=== PATIENT | male | born 1960 | race Caucasian/White ===

== ENCOUNTER 2022-07-17 10:02 | Outpatient (REF) | payer OTHER, SELFPAY ==
[2022-07-17 11:42] LABS: Appearance Urine Clear; Color Urine Yellow; Glucose Urine UA 100 mg/dL (Negative); Leukocyte Esterase Urine Negative (Negative); Nitrite Urine Negative (Negative); PH 6.5 (5.0-9.0); Urine Blood Negative (Negative); Urine Ketones 15 mg/dL (Negative); Urine Protein Negative (Neg-Trace)
[2022-07-17 11:45] LABS: MANUAL DIFF FLAG NO
[2022-07-17 12:02] LABS: Basophils Absolute Auto 0.1 X10*3/uL (0.0-0.2); Basophils Percent Auto 1.2 % (0-2); Eosinophils Absolute Auto 0.1 X10*3/uL (0.0-0.4); Eosinophils Percent Auto 2.4 % (0-4); Hematocrit 51.2 % (42.0-52.0); Hemoglobin 16.9 g/dl (14.0-18.0); Imm Gran Abs Auto 0.01 X10*3/uL (0.00-0.03); Imm Gran Pct Auto 0.2 % (0.0-0.4); Lymphocytes Absolute Auto 1.7 X10*3/uL (1.2-4.9); Lymphocytes Percent Auto 34.1 % (20-40); Mean Corpuscular Hemoglobin 29.4 pg (27.0-33.0); Mean Corpuscular Volume 89.2 fL (80.0-98.0); Mean Platelet Volume 10.5 fL (9.4-12.4); Monocytes Absolute Auto 0.4 X10*3/uL (0.1-1.2); Monocytes Percent Auto 7.7 % (2-11); Neutrophils Absolute Auto 2.7 x10*3/uL (2.0-8.3); Neutrophils Percent Auto 54.4 % (45-73); Platelet Count 164 X10*3/uL (160-400); Red Blood Count 5.74 X10*6/uL (4.60-5.80); Red Cell Distribution Width 13.2 % (11.0-16.0)
[2022-07-17 12:04] LABS: Creatinine Urine 179.17 mg/dL; Microalbum/Creatinine Ratio Ur 16.7 ug/mg cr
[2022-07-17 14:02] LABS: Alanine Aminotransferase 76 U/L (0-40); Albumin Level 4.2 g/dL (3.5-5.0); Alkaline Phosphatase 73 U/L (39-117); Anion Gap 15 (12-20); Aspartate Amino Transferase 49 U/L (5-37); Blood Urea Nitrogen 16 mg/dL (9-16); Calcium 9.6 mg/dL (8.4-10.2); Carbon Dioxide 24 mmol/L (22-29); Chloride 106 mmol/L (96-108); Cholesterol 209 mg/dL; Estimated Glomerular Filt Rate > 60; Glucose Fasting 161 mg/dL (60-99); HDL Cholesterol 32 mg/dL; LDL Cholesterol Calculated 145 mg/dl; Potassium 4.1 mmol/L (3.3-5.1); Sodium 141 mmol/L (135-145); Total Protein 6.7 g/dL (6.5-8.0); Triglycerides 162 mg/dL
[2022-07-17 14:17] LABS: TSH reflex Free T4 1.45 uIU/mL (0.32-4.0)
== END 2022-07-17 10:03 | disposition home or self-care (01) ==
LOC: HO.HMGCLDS 10:02
PROVIDERS: PCP Family Medicine; Visit Provider Family Medicine
DX: Z00.00 Encounter for general adult medical examination without abnormal findings (principal); I10 Essential (primary) hypertension; Z12.5 Encounter for screening for malignant neoplasm of prostate
CPT/HCPCS: 36415; 80053; 80061; 81003; 82043; 84153; 84443; 85025

== ENCOUNTER 2022-09-04 07:47 | Outpatient (REF) | payer OTHER, SELFPAY ==
--- NOTE | ~2022-09-04 | US_ITS ---
EXAMINATION: US ABDOMEN LIMITED WITH LIVER ELASTOGRAPHY CLINICAL INFORMATION: Abnormal levels of serum enzymes COMPARISON: None. TECHNIQUE: Real-time imaging of the abdominal viscera. Noninvasive ultrasound liver fibrosis assessment is performed using [employer] ElastPQ point quantification shear wave elastography (2D-SWE) with a C5-2 MHz transducer. Multiple elastography samples are obtained. FINDINGS: PANCREAS: The visualized pancreatic head and body are normal in appearance. The tail of the pancreas is obscured from visualization by the overlying bowel gas. LIVER: The liver demonstrates enlarged size, normal contour and echogenicity. No focal lesion or intrahepatic biliary duct dilatation. The right lobe measures 21.0 cm in length. The left lobe measures 17.2 cm in length. Portal flow is hepatopedal Shear wave liver elastography median stiffness is 1.18 m/s (reference: normal median stiffness is 1.3 m/s or less). IQR/median stiffness to assess sampling precision is 0.08 (reference: good quality data set is IQR/median stiffness of 0.15 or less). GALLBLADDER: Gallbladder wall thickness measures 0.3 cm. The gallbladder is physiologically distended without evidence of stones, sludge, polyps, wall thickening or pericholecystic fluid. COMMON BILE DUCT: Common bile duct is not visualized. RIGHT KIDNEY: There is an echogenic stone midpole measuring 1.3 x 0.8 x 0.9 seen. The kidney measures 12.3 cm in maximum dimension. FREE FLUID: None. US/US abdomen harmon w elastography IMPRESSION: 1. Mild hepatic steatosis without focal lesion. Nonobstructive echogenic right renal calculi. 2. Liver elastography: Median liver stiffness measures 1.18 suggestive of high probability normal REFERENCE: Society of Radiologists in Ultrasound Liver Stiffness Thresholds (2020): LIVER STIFFNESS THRESHOLDS: *Liver Stiffness equal or less than 1.3 m/s: High probability of being normal. *Liver Stiffness less than 1.7 m/s: In the absence of other known clinical signs, rules out compensated advanced chronic liver disease. *Liver Stiffness 1.7-2.1 m/s: Suggestive of compensated advanced chronic liver disease but need further test for confirmation. *Liver Stiffness over 2.1 m/s: Rules in compensated advanced chronic liver disease. *Liver Stiffness over 2.4 m/s: Suggestive of clinically significant portal hypertension. QUALITY OF DATA SET: *IQR/Median value equal or less than 0.15 implies a quality data set. *IQR/Median value over 0.15 implies a poor quality data set. SIGNIFICANT CHANGE FROM PRIOR EXAM: Significant change if liver stiffness measurement is 10% or greater from prior exam. OTHER CONSIDERATIONS: The stage of liver fibrosis may be overestimated in the setting of acute hepatitis, liver inflammation, elevated liver function tests, hepatic vascular congestion, obstructive cholestasis, non-fasting state, and infiltrative diseases such as amyloidosis and lymphoma. In some patients with NAFLD, the liver stiffness thresholds for compensated advanced chronic liver disease may be lower. In causes other than viral hepatitis and NAFLD, liver stiffness thresholds are not well established.
[2022-09-04 09:51] LABS: Alanine Aminotransferase 44 U/L (0-40); Albumin Level 4.2 g/dL (3.5-5.0); Alkaline Phosphatase 60 U/L (39-117); Anion Gap 11 (12-20); Aspartate Amino Transferase 26 U/L (5-37); Bilirubin Total 0.7 mg/dL (0.0-1.0); Blood Urea Nitrogen 30 mg/dL (9-16); Calcium 9.5 mg/dL (8.4-10.2); Carbon Dioxide 26 mmol/L (22-29); Chloride 110 mmol/L (96-108); Estimated Glomerular Filt Rate > 60; Glucose Fasting 136 mg/dL (60-99); Potassium 5.3 mmol/L (3.3-5.1); Sodium 142 mmol/L (135-145); Total Protein 6.5 g/dL (6.5-8.0)
== END 2022-09-04 07:48 | disposition home or self-care (01) ==
LOC: HO.US 07:47
PROVIDERS: PCP Family Medicine; Visit Provider Family Medicine
DX: Z00.00 Encounter for general adult medical examination without abnormal findings (principal); R74.8 Abnormal levels of other serum enzymes
CPT/HCPCS: 36415; 76705; 76981; 80053

== ENCOUNTER → 2022-10-16 10:40 | Outpatient (BNVA) | payer OTHER, SELFPAY | PROVIDERS: PCP Family Medicine; Visit Provider Physician Assistant | DX: R74.8 Abnormal levels of other serum enzymes (principal); I25.2 Old myocardial infarction; J44.9 Chronic obstructive pulmonary disease, unspecified; Z86.010 Personal history of colon polyps; Z79.84 Long term (current) use of oral hypoglycemic drugs | CPT/HCPCS: 99202 ==

== ENCOUNTER 2023-02-25 08:30 | Outpatient (AMB) | payer OTHER, SELFPAY ==
[2023-02-25 08:51] VITALS: BP 124/78; PULSE 69; O2SAT 97; BMI 31.7
--- NOTE | 2023-02-25 08:51 | MHC.PC.OV ---
Vital Signs 02/25/23 08:51 Height 6 ft Weight 233 lb 8 oz BMI 31.7 BP 124/78 Blood Pressure Location Lt brachial Position Sitting Pulse 69 Pulse Source Pulse Oximeter Pulse Oximetry (%) 97 Oxygen Delivery Method Room Air Intake Visit Reasons: f/u diabetes Intake Note: Patient is here to follow up on his diabetes today. Allergies No Known Allergies Allergy (Verified 02/25/23 08:52) Medication List - Last Reconciled 02/25/23 by Reji Lancaster MD albuterol sulfate 90 mcg/actuation 2 puffs inhalation Q4-6H PRN aspirin (Adult Aspirin Regimen) 81 mg PO DAILY atorvastatin 80 mg PO DAILY 30 days bisacodyl (Dulcolax (bisacodyl)) 10 mg (2 x 5 mg) PO ONCE 1 day bisacodyl (Dulcolax (bisacodyl)) 10 mg (2 x 5 mg) PO ONCE 1 day blood sugar diagnostic (FreeStyle Lite Strips) DX: E11.9, test blood sugar 2 times a day, 90 days blood-glucose meter (FreeStyle Lite Meter kit) DX: E11.9, test blood sugar 2 times a day, duration 999 days blood-glucose sensor (FreeStyle Heraclio 3 Sensor device) Every 14 days As directed, 28 days carbamide peroxide 6.5% (Debrox) 5 drps otic (ears) DAILY 4 days empagliflozin (Jardiance) 10 mg PO DAILY 30 days glhcvkjklyq-eedkbfane-ehlwpful 100-62.5-25 mcg (Trelegy Ellipta) 1 inh inhalation DAILY glipizide ER 5 mg PO DAILY 30 days lancets (FreeStyle Lancets) As directed losartan-hydrochlorothiazide 50-12.5 mg 1 tab PO DAILY 90 days polyethylene glycol 3350 (Miralax) 238 grams PO ONCE 1 day polyethylene glycol 3350 (Miralax) 238 grams PO ONCE 1 day tizanidine 4 mg PO Q8H PRN 30 days Tobacco use date assessed: 02/25/23 Fall risk assessment: No Falls in past year Last assessed Fall Risk: 02/25/23 Dental Screening Dental Screen Date: 02/25/23 Did you have a dental visit in the last 12 months?: No Did you have a dental problem in the last 6 months where you did not have access to dental care?: No Was dental information given to patient?: Patient declined HPI f/u diabetes HPI Details 62 y/o male presents to f/u diabetes and hypertension with hx of CAD. His A1c had improved significantly down to 7.6%. Has a fluctuating blood sugars and eats out a lot. Encouraged him to work at lifestyle changes further. A1c today 02/25/23 is 8.4%. He is on Jardiance 10mg and glipizide 5mg daily. He reports morning blood sugars in the 120-160s. Blood pressure today is 124/78. He is on losartan-HCTZ 50-12.5mg daily. Pt notes his foot has been peeling and is unsure why. 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 Eliceo Oritz, Adriana Butler, Nicolas Osorio and colleagues, with an educational gerard from [employer]. Physical exam (Primary Care) Vital Signs: Last Vital Signs Pulse 69 02/25/23 08:51 BP 124/78 02/25/23 08:51 Pulse Ox 97 02/25/23 08:51 Oxygen Delivery Method Room Air 02/25/23 08:51 BMI result Body Mass Index 31.7 Tobacco/Smoking Status: Tobacco use Status Tobacco use date assessed 02/25/23 02/25/23 09:00 Patient Tobacco Use Status Never used Tobacco 02/25/23 09:00 e-Cigarette/Vaping Use Never Used 02/25/23 09:00 Thrive Assessment: Date of Thrive Assessment Date Thrive assessed 06/13/22 02/25/23 09:00 Results AMB Hemoglobin A1c AMB Hemoglobin A1c 8.4 % Last Edit by Shadia Garibay CMA on 02/25/23 09:18 Results Reviewed Results Reviewed: Laboratory Last Values Hgb A1c (Clinic) 8.4 % (4.0-6.0) H 02/25/23 09:17 Assessment and Plan Assessment & Plan (1) Diabetes: Code(s): E11.9 - Type 2 diabetes mellitus without complications Plan: Significantly worsened control of his diabetes and A1c now 8.4%. He notes that his morning blood sugars typically run between 90 and 160 based on what he is eating. He also notes some sugars that are lower in the afternoons - a couple down to 50. He says that he does not eat lunch. Encouraged him to at least have a small snack or lunch; regular meals and food intake are important with diabetes. Overall, he needs increased sugar control and I am increasing his Farxiga. He will eat more regular meals and snacks. Referring him to endocrinology (2) Coronary artery disease: Code(s): I25.10 - Atherosclerotic heart disease of [place] coronary artery without angina pectoris Plan: Had increased his atorvastatin at prior visit Will discuss repeating lipids at next visit (3) Hypertension: Code(s): I10 - Essential (primary) hypertension Plan: Blood pressure is controlled. Goal Is less than 130/80 Continue current medication regimen (4) Fungal infection of foot: Code(s): B35.3 - Tinea pedis Plan: He can use an OTC antifungal cream Orders: Orders Comprehensive [place]. Panel Fast Today E11.9 - Type 2 diabetes mellitus without complications, Z00.00 - Encounter for general adult medical examination without abnormal findings Lipid Panel Today I25.10 - Atherosclerotic heart disease of [place] coronary artery without angina pectoris, Z00.00 - Encounter for general adult medical examination without abnormal findings AMB Hemoglobin A1c Today Z13.9 - Encounter for screening, unspecified Referrals Endocrinology Referral E11.9 - Type 2 diabetes mellitus without complications Medications: Changed From empagliflozin (Jardiance) 10 mg PO DAILY 30 days 30 tabs 2RF E11.9 - Type 2 diabetes mellitus without complications To empagliflozin 25 mg PO DAILY 30 days 30 tabs 2RF E11.9 - Type 2 diabetes mellitus without complications Coding Level of Care Code Est Pt Level 4 (00344) Diagnoses Diabetes E11.9 Coronary artery disease I25.10 Hypertension I10 Fungal infection of foot B35.3
== END 2023-02-25 09:40 | disposition home or self-care (01) ==
PROVIDERS: PCP Family Medicine; Visit Provider Family Medicine
DX: E11.9 Type 2 diabetes mellitus without complications (principal); I25.10 Atherosclerotic heart disease of native coronary artery without angina pectoris; I10 Essential (primary) hypertension; B35.3 Tinea pedis
CPT/HCPCS: 83036; 99214

== ENCOUNTER 2023-04-03 08:08 | Outpatient (AMB) | payer OTHER, SELFPAY ==
[2023-04-03 08:33] VITALS: BP 112/68; PULSE 61; RESP 14; TEMP 37.2; O2SAT 97; BMI 31.8
--- NOTE | 2023-04-03 08:33 | MHC.PC.OV ---
Vital Signs 04/03/23 08:33 Height 6 ft Weight 234 lb 6 oz BMI 31.8 BP 112/68 Blood Pressure Location Lt brachial Position Sitting Respiration 14 Pulse 61 Pulse Source Pulse Oximeter Temp 98.9 F Temp Source Oral Pulse Oximetry (%) 97 Oxygen Delivery Method Room Air Intake Visit Reasons: f/u diabetes Intake Note: Patient reports he is here for a diabetic follow up. He reports he would like to discuss the dosing on his glipizide medication. Patient states he had his A1C done last month. 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 Accompanied by: Self / Same As Patient Allergies No Known Allergies Allergy (Verified 02/25/23 08:52) Medication List - Last Reconciled 04/03/23 by Reji Lancaster MD albuterol sulfate 90 mcg/actuation 2 puffs inhalation Q4-6H PRN aspirin (Adult Aspirin Regimen) 81 mg PO DAILY atorvastatin 80 mg PO DAILY 30 days blood sugar diagnostic (FreeStyle Lite Strips) DX: E11.9, test blood sugar 2 times a day, 90 days blood-glucose meter (FreeStyle Lite Meter kit) DX: E11.9, test blood sugar 2 times a day, duration 999 days blood-glucose sensor (Ortho-tagStyle Heraclio 3 Sensor device) Every 14 days As directed, 28 days carbamide peroxide 6.5% (Debrox) 5 drps otic (ears) DAILY 4 days empagliflozin 25 mg PO DAILY 30 days cscyjbzbqxb-cvjxoinxf-zyfdjvdm 100-62.5-25 mcg (Trelegy Ellipta) 1 inh inhalation DAILY glipizide ER 5 mg PO DAILY 30 days lancets (FreeStyle Lancets) As directed losartan-hydrochlorothiazide 50-12.5 mg 1 tab PO DAILY 90 days tizanidine 4 mg PO Q8H PRN 30 days Tobacco use date assessed: 02/25/23 Fall risk assessment: No Falls in past year Last assessed Fall Risk: 04/03/23 Dental Screening Dental Screen Date: 04/03/23 Did you have a dental visit in the last 12 months?: Yes Did you have a dental problem in the last 6 months where you did not have access to dental care?: No Was dental information given to patient?: Patient has dentist HPI f/u diabetes HPI Details 62 y/o male presents to f/u diabetes. A1c had risen to 8.4%. Had increased Farxiga and encouraged more regular meals as he had been getting some low blood sugars when he does not eat. He?was?unable?to?get?Farxiga?and?is?back?on?Jardiance?25?mg?daily.??Maxed?out?on?Jardiance. Was?given?fast?acting?glipizide?by?endocrinology?but?he?says?this?was?not?controlling?his?blood?sugars?at?all. 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 Eliceo Ortiz, Adriana Butler, Nicolas Osorio and colleagues, with an educational gerard from [employer]. Physical exam (Primary Care) Vital Signs: Last Vital Signs Temp 98.9 F 04/03/23 08:33 Pulse 61 04/03/23 08:33 Resp 14 04/03/23 08:33 BP 112/68 04/03/23 08:33 Pulse Ox 97 04/03/23 08:33 Oxygen Delivery Method Room Air 04/03/23 08:33 BMI result Body Mass Index 31.8 Tobacco/Smoking Status: Tobacco use Status Tobacco use date assessed 02/25/23 04/03/23 08:36 Patient Tobacco Use Status Never used Tobacco 04/03/23 08:36 e-Cigarette/Vaping Use Never Used 04/03/23 08:36 Thrive Assessment: Date of Thrive Assessment Date Thrive assessed 06/13/22 04/03/23 08:36 Assessment and Plan Assessment & Plan (1) Diabetes: Code(s): E11.9 - Type 2 diabetes mellitus without complications Plan: Has?some?misunderstandings?about?appropriate?blood?sugar?control?levels. We?discussed?that?goal?for?his?morning?blood?sugar?should?be?around?80-115?or?125?max. Goal?for?his?blood?sugars?throughout?his?day?should?average?less?than?135 We?can?discuss?a?med?goals?at?another?visit?when?his?blood?sugars?are?improving. He?will?continue?Jardiance.??He?was?unable?to?obtain?Farxiga.??He?is?maxed?out?on?this?medication. He?will?use?glipizide?ER?5?mg?in?the?morning?with?his?breakfast?and?5?mg?before?his?lunch.??If?he?is?going?low?he?can?take?5?mg?in?the?morning?and?2.5?with?lunch?and?2.5?with?dinner. Reminded?him?that?he?should?not?skip?meals?and?can?use?a?snack?if?he?is?getting?low?with?this?regimen. Follow-up?in?3?months (2) Coronary artery disease: Code(s): I25.10 - Atherosclerotic heart disease of [place] coronary artery without angina pectoris Plan: Had?increased?atorvastatin?to?80?mg?about?2?visits?ago He?is?tolerating?this?well He?will?recheck?his?lipids?prior?to?our?next?visit. Orders: Orders Lipid Panel Today I25.10 - Atherosclerotic heart disease of [place] coronary artery without angina pectoris, Z00.00 - Encounter for general adult medical examination without abnormal findings Comprehensive [place]. Panel Fast Today I25.10 - Atherosclerotic heart disease of [place] coronary artery without angina pectoris, Z00.00 - Encounter for general adult medical examination without abnormal findings Medications: Changed From glipizide ER 5 mg PO DAILY 30 days 30 tabs 2RF To glipizide ER Take 15 min before breafast and 15 min before lunch 5 mg PO BID 60 tabs 2RF 30 days Coding Level of Care Code Est Pt Level 3 (23651) Diagnoses Diabetes E11.9 Coronary artery disease I25.10
== END 2023-04-03 09:30 | disposition home or self-care (01) ==
PROVIDERS: PCP Family Medicine; Visit Provider Family Medicine
DX: E11.9 Type 2 diabetes mellitus without complications (principal); I25.10 Atherosclerotic heart disease of native coronary artery without angina pectoris
CPT/HCPCS: 99213

== ENCOUNTER 2023-05-13 06:46 | Day surgery (SDC) | payer OTHER, SELFPAY ==
--- NOTE | 2023-05-12 10:48 | P.CONAN_ITS ---
Documented by User: Jenise Cody NP 05/12/23 12:34 HPI - Anesthesia Eval Consult details Narrative: 62yo M for Colonoscopy Follows [facility] - last seen 04/2022 with c/o SOB - w/u with echo and stress - nml so no need for cath. Per TC with pt 05/12/2023, no CP/SOB with activity. Follows [facility] - last seen 09/2022, optimized for colo PMFSH Active Problems Active Problems: All Active Problems (Updated 02/25/23 @ 09:37 by Jameson Huggins) Fungal infection of foot (Acute) Personal history of colonic polyps (Acute) Otalgia (Acute) Left ear impacted cerumen (Acute) Diabetes (Acute) Elevated liver enzymes (Acute) Screening for prostate cancer (Acute) Screening for colon cancer (Acute) Adult general medical examination (Acute) Elevated fasting glucose (Acute) Throat discomfort (Acute) Right sided sciatica (Acute) Pulmonary nodules (Acute) Coronary artery disease (Acute) History of UT (myocardial infarction) (Acute) Hyperlipidemia (Acute) COPD (chronic obstructive pulmonary disease) (Acute) Hypertension (Acute) Laboratory exam ordered as part of routine general medical examination (Acute) Past Medical History Medical History Carpal tunnel syndrome Heart disease COPD (chronic obstructive pulmonary disease) Family History Family History Unknown Adopted Surgical History Surgical History History of heart artery stent Hx of colonoscopy History of surgery on right wrist Hx of knee surgery History of nasal surgery Social History Social History Housing: House Patient Tobacco Use Status: Never used Tobacco e-Cigarette/Vaping Use: Never Used Second Hand Smoke Exposure: No Advance Directives: No Advance Directives Information Provided: Yes service: Yes (Retired [employer]) Current occupational status: 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 100 mcg-umeclid 1 inh inhalation DAILY 06/13/22 04/03/23 Unknown History 62.5 mcg-vilant 25 mcg inhalat.powder (Trelegy Ellipta) Exam Exam Date and Time: May 12, 2023 1048 Narrative Narrative: EKG 2021 Marked SB @ 47 Low volt QRS Inf infarct ECHO 05/2022 1. Nml LV size and systolic function. Nml RWM. LVEF 55-60% Nml LV diastolic function 2. Mild concentric LVH 3. No signif valve disease 4. Transverse aorta mildly dilated 3.1cm Nuc Stress 05/2022 Negative for ischemia Nml perfusion test. Assessment and Plan Assessment Anesthesia Assessment: Chart Reviewed Documented by User: Bre Llamas MD 05/13/23 07:37 [facility] Past Medical History Medical History Carpal tunnel syndrome Heart disease COPD (chronic obstructive pulmonary disease) Family History Family History Unknown Adopted Surgical History Surgical History History of heart artery stent Hx of colonoscopy History of surgery on right wrist Hx of knee surgery History of nasal surgery History of Problems with Anesthesia: No Social History Social History Housing: House Patient Tobacco Use Status: Never used Tobacco e-Cigarette/Vaping Use: Never Used Second Hand Smoke Exposure: No Advance Directives: No Advance Directives Information Provided: Yes service: Yes (Retired [employer]) 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 occupational status: 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 100 mcg-umeclid 1 inh inhalation DAILY 06/13/22 04/03/23 Unknown History 62.5 mcg-vilant 25 mcg inhalat.powder (Trelegy Ellipta) Exam Airway Mallampati Class: III TM Dist: >3cm Neck ROM: Full Loose/Missing/Broken Teeth: No Heart: RRR Lungs: CTA Assessment and Plan Assessment Anesthesia Assessment: Anesthesia Plan Discussed Final Anesthetic Review History of Problems with Anesthesia: No NPO: Yes ASA Class: III Final Preanesthetic Review: Meds/Allgs Chart Reviewed, Consent Obtained/Reviewed and Anes Risks/Benef Reviewed Patient Risk: Intermediate Procedure Risk: Low Anesthetic Plan Anesthetic Plan: MAC: Disposition: Standard PACU
--- NOTE | 2023-05-13 06:39 | MHC.SHP ---
Pre-Procedural Eval Section A Date of Service: 05/13/23 Section B Chief Complaint: Personal history of colonic polyps Relevant Family History (Specify if Yes): No Relevant Social History: None Present Medications: see Short Stay Collaborative assessment Medical History: Significant History (Carpal tunnel syndrome Heart disease COPD (chronic obstructive pulmonary disease)) History of Previous Operations: Relevant previous surgery/procedure and date(s) (History of heart artery stent Hx of colonoscopy History of surgery on right wrist Hx of knee surgery History of nasal surgery) Allergies: Allergies Allergy/AdvReac Type Severity Reaction Status Date / Time No Known Allergies Allergy Verified 02/25/23 08:52 Review of Systems Sugical H&P ROS: Negative: Constitution, Cardiovascular, Respiratory, Neurological, Psychiatric, Hem-Onc, Allergic/Immunologic, Gastrointestinal, Genitourinary, Musculoskeletal, Integumentary, Endocrine and Eyes/Ears/Nose/Throat Exam Surgical H&P Exam: Normal: HEENT, Normal: Heart, Normal: Lungs, Normal: Extremities, Normal: Abdomen, Normal: Skin and Normal: Neurological Plan Diagnosis/Plan: Unchanged I have reviewed the history and physical and performed a pertinent physical examination on my patient. No changes have occurred unless specified. Time Spent With Patient Time: Total time managing care of this patient today ____ minutes.
[2023-05-13 07:13] VITALS: BP 109/85; PULSE 64; RESP 18; TEMP 36.8; O2SAT 95; BMI 31.2
[2023-05-13 07:18] LABS: Glucose, Whole Blood 154 mg/dL (60-115)
[2023-05-13] MEDS: Lactated Ringers 1,000 ML 100 ML IVCONT (07:19)
--- NOTE | 2023-05-13 08:29 | P.OP_ITS ---
Operative Note Operative Note Date of Service: 05/13/23 Narrative: Operative Information Procedure Description: Colonoscopy Indication: hx of colon polyps Anesthesia: MAC COLONOSCOPY Instrument: Olympus variable stiffness pediatric scope 190L Colonoscopy Monitoring: Vital signs and clinical assessment, continuous EKG monitoring, Pulse oximetry, Carbon Dioxide monitoring and blood pressure monitoring were done throughout the procedure. Colon withdrawal time was 25 minutes. Procedure: The patient was placed in the left lateral decubitis position and pre-procedure medications were administered. After a digital rectal examination of the ano-rectum, the video colonoscope was inserted into the rectum and advanced through the colon to the cecum/TI. The colonoscope was slowly withdrawn in a retrograde panoramic fashion and the colon mucosa was carefully examined including a retroflexed view of the rectum. Findings and interventions are described below. Procedure Difficulty: moderate Findings: Terminal Ileum-not intubated Cecum: 6-8 mm sessile polyp removed with cold snare, 4-6 mm sessile polyp removed with cold forceps Ascending Colon: normal Transverse Colon -normal Descending Colon:normal Sigmoid Colon: moderate severe diverticulosis. at approx 30 cm from anal verge semi pedunculated polyp measuring about 14-15 mm injected with epinephrine and then removed with hot snare with one clip applied to the base of the defect Rectum: Retroflexion with moderate internal hemorrhoids, grade I Anorectum - normal Colon preparation: [facility] Bowel Preparation Scale Right colon; 2 Transverse colon: 3 Left colon; 2 (0 = Unprepared colon segment with mucosa not seen due to solid stool that cannot be cleared. 1 = Portion of mucosa of the colon segment seen, but other areas of the colon segment not well seen due to staining, residual stool and/or opaque liquid. 2 = Minor amount of residual staining, small fragments of stool and/or opaque liquid, but mucosa of colon segment seen well. 3 = Entire mucosa of colon segment seen well with no residual staining, small fragments of stool or opaque liquid) Impression and Post Procedure Diagnosis: polyps internal hemorrhoids diverticular disease Plan: High fiber diet leaflet Avoid straining at stool, epsom salts and sitz bath, anusol supps or cream Repeat Colonoscopy in 1-2 years or earlier if clinically indicated can resume aspirin tomorrow Above findings were reviewed with the patient and relevant handouts were provided if indicated.
[2023-05-13 08:34] VITALS: BP 133/79; PULSE 71; RESP 18; TEMP 36.6; O2SAT 98
[2023-05-13 08:49] VITALS: BP 141/81; PULSE 66; RESP 18; TEMP 36.9; O2SAT 96
== END 2023-05-13 09:05 | disposition home or self-care (01) ==
PROVIDERS: PCP Family Medicine; Visit Provider Internal Medicine Gastroenterology
PROC: 0DJD8ZZ Inspection of Lower Intestinal Tract, Via Natural or Artificial Opening Endoscopic (ICD-10-PCS; CPT 45378; principal; 2023-05-13 08:20)
DX: Z12.11 Encounter for screening for malignant neoplasm of colon (principal); Z86.010 Personal history of colon polyps; K63.5 Polyp of colon; K57.30 Diverticulosis of large intestine without perforation or abscess without bleeding; K64.0 First degree hemorrhoids; I25.10 Atherosclerotic heart disease of native coronary artery without angina pectoris; I11.9 Hypertensive heart disease without heart failure; I25.2 Old myocardial infarction; Z95.5 Presence of coronary angioplasty implant and graft; E11.9 Type 2 diabetes mellitus without complications; E78.5 Hyperlipidemia, unspecified; J44.9 Chronic obstructive pulmonary disease, unspecified; R74.8 Abnormal levels of other serum enzymes; Z79.51 Long term (current) use of inhaled steroids; Z79.82 Long term (current) use of aspirin; Z79.84 Long term (current) use of oral hypoglycemic drugs; Z79.899 Other long term (current) drug therapy; Z98.890 Other specified postprocedural states
CPT/HCPCS: 45385; 45380; 45381; 82947; 88305; J0171; J2704

== ENCOUNTER → 2023-05-13 06:46 | Outpatient (BNV) | payer OTHER, SELFPAY | PROVIDERS: PCP Family Medicine; Visit Provider Internal Medicine Gastroenterology | DX: Z12.11 Encounter for screening for malignant neoplasm of colon (principal); Z86.010 Personal history of colon polyps; D12.0 Benign neoplasm of cecum; D12.5 Benign neoplasm of sigmoid colon; K64.0 First degree hemorrhoids | CPT/HCPCS: 45380; 45381; 45385 ==

== ENCOUNTER 2023-05-28 07:21 | Outpatient (AMB) | payer OTHER, SELFPAY ==
--- NOTE | 2023-05-28 07:37 | MHC.OFFVIS ---
Intake Vital Signs 05/28/23 07:42 Height 6 ft Weight 230 lb BMI 31.2 BP 133/69 Blood Pressure Location Lt brachial Position Sitting Pulse 78 Intake Visit Reasons: S/P [place]; Dr. Jacobs Intake Note: Patient follow up for Colonoscopy screening Patient denies any GI issues. Non Profit Job Titles Required: No Accompanied by: Self / Same As Patient Allergies No Known Allergies Allergy (Verified 05/28/23 07:37) Medication List - Last Reconciled 05/28/23 by Wilma Abdullahi PA-C albuterol sulfate 90 mcg/actuation 2 puffs inhalation Q4-6H PRN aspirin (Adult Aspirin Regimen) 81 mg PO DAILY atorvastatin 80 mg PO DAILY 90 days bisacodyl (Dulcolax (bisacodyl)) 20 mg (4 x 5 mg) PO ONCE 1 day blood sugar diagnostic (FreeStyle Lite Strips) DX: E11.9, test blood sugar 2 times a day, 90 days blood-glucose meter (FreeStyle Lite Meter kit) DX: E11.9, test blood sugar 2 times a day, duration 999 days blood-glucose sensor (FreeStyle Heraclio 3 Sensor device) Every 14 days As directed, 28 days carbamide peroxide 6.5% (Debrox) 5 drps otic (ears) DAILY 4 days empagliflozin 25 mg PO DAILY 30 days cfcdzxwoitu-dwhfeecpd-avlrrtic 100-62.5-25 mcg (Trelegy Ellipta) 1 inh inhalation DAILY glipizide ER 5 mg PO BID 30 days lancets (FreeStyle Lancets) As directed losartan-hydrochlorothiazide 50-12.5 mg 1 tab PO DAILY 90 days polyethylene glycol 3350 (Miralax) 238 grams PO ONCE 1 day tizanidine 4 mg PO Q8H PRN 30 days HPI HPI Comments History of Present Illness Details A 62 y/o adopted male GI history is unknown, history of colon polyps, f/u after polyp surveillance colonoscopy with polypectomy-tubular adenoma with high-grade dysplasia However reviewed procedure report, pathology recommendation He presents with much worsening heartburn- had rare heartburn, always responded to tums- however seems daily-the with worsening symptoms throughout the day, unable to identify anything specific Occasional nausea no vomiting, abdominal pain, hematochezia, hematemesis fever chills. 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 Current occupational exposures/hazards: No Cognitive needs: No Hearing needs: No Vision needs: No Review of Systems Const All systems reviewed & are unremarkable except as noted in HPI and below Card Denies chest pain and Denies dyspnea Resp Denies dyspnea GI Denies abdominal pain and Reports heartburn Physical Exam Vital Signs: Last Vital Signs Pulse 78 05/28/23 07:42 BP 133/69 05/28/23 07:42 BMI result Body Mass Index 31.2 Const General: cooperative, healthy appearing and comfortable Orientation/consciousness: patient oriented x3 Limitations: no limitations Eyes Sclerae: sclerae normal Resp Effort & Inspection: normal respiratory effort and able to speak in complete sentences Skin General skin exam: no rashes or lesions noted Neuro General: patient oriented x3 Extrem General: Yes full ROM Psych Appearance: grossly normal and well kempt Mental Status: mental status grossly normal Speech and movement: Normal speech and movement present and Clear speech present Attitude: cooperative Thought process: Normal thought process present Thought content: Normal thought content present Insight: Good insight present (Psych) Judgement: Good judgement present (Psych) Results Reviewed Results Reviewed: Impression and Post Procedure Diagnosis: polyps internal hemorrhoids diverticular disease Plan: High fiber diet leaflet Avoid straining at stool, epsom salts and sitz bath, anusol supps or cream Repeat Colonoscopy in 1-2 years or earlier if clinically indicated can resume aspirin tomorrow Submitted by: Cedric Jacobs MD Copies to: Reji Lancaster MD MR #: [id number] Status: [facility] Collected: 05/13/23 Location: [facility] Received: 05/13/23 Diagnosis A. Cecum, polypectomies: Fragments of tubular adenoma; negative for high-grade dysplasia or carcinoma. B. Colon, sigmoid, polypectomy: Tubular adenoma with high grade dysplasia and prolapse features; multiple additional levels examined. COMMENT: The dysplasia in part B is not present at the stalk margin. Clinical History Pre-Op Dx: Screening, history of colonic polyps Post-Op Dx: Colon polyps, diverticulosis, hemorrhoids Microscopic Description A, B. Microscopic sections reviewed. Material Received A. Polyps cecum B. Polyp sigmoid colon Gross Description Received in 2 parts. Part A: Received in formalin labeled ?polyps cecum? are multiple minute to 0.4 cm in greatest dimension heck and heck-pink irregular and papular tissue fragments, submitted in toto in a cassette labeled A. Part B: Received in formalin labeled ?polyp sigmoid colon? is a 0.8 x 0.6 x 0.5 cm congested and hemorrhagic, pink-maroon polypoid tissue fragment. The resected base is inked, the specimen is bisected and entirely submitted in a cassette labeled B. CEDS This case was reviewed intradepartmentally (B). Copies To Reji Lancaster MD [address] [place] [id number] Patient: Colton Santos Age/Sex: 62/M MR#: [id number] Page 1 of 2 Repeat colonoscopy 3-6 months Assessment & Plan Assessment & Plan (1) Tubular adenoma of colon: Comment: Name: Colton Santos Age/Sex: 62/M Attending: Cedric Jacobs MD : 1960 Submitted by: Cedric Jacobs MD Copies to: Reji Lancaster MD MR #: [id number] Status: [facility] Collected: 05/13/23 Location: [facility] Received: 05/13/23 Diagnosis A. Cecum, polypectomies: Fragments of tubular adenoma; negative for high-grade dysplasia or carcinoma. B. Colon, sigmoid, polypectomy: Tubular adenoma with high grade dysplasia and prolapse features; multiple additional levels examined. COMMENT: The dysplasia in part B is not present at the stalk margin. Code(s): D12.6 - Benign neoplasm of colon, unspecified (2) Diverticulosis of colon: Comment: Findings: Terminal Ileum-not intubated Cecum: 6-8 mm sessile polyp removed with cold snare, 4-6 mm sessile polyp removed with cold forceps Ascending Colon: normal Transverse Colon -normal Descending Colon:normal Sigmoid Colon: moderate severe diverticulosis. at approx 30 cm from anal verge semi pedunculated polyp measuring about 14-15 mm injected with epinephrine and then removed with hot snare with one clip applied to the base of the defect Rectum: Retroflexion with moderate internal hemorrhoids, grade I Code(s): K57.30 - Diverticulosis of large intestine without perforation or abscess without bleeding (3) Acid reflux: Comment: Worse acid reflux-recommend EGD, discussed procedure, rare risk Code(s): K21.9 - Gastro-esophageal reflux disease without esophagitis Plan: Will begin pantoprazole 40 mg Will at EGD to repeat colonoscopy Plan Repeat colonoscopy 3-6 months please add EGD-Dr. Jacobs-thank you MiraLax Gatorade prep Medications: New pantoprazole 40 mg PO DAILY 30 days 30 tabs 11RF Refilled bisacodyl (Dulcolax (bisacodyl)) take at noon the day before colonoscopy 20 mg (4 x 5 mg) PO ONCE 1 day 4 tabs 0RF polyethylene glycol 3350 (Miralax) Take as directed by mouth the day before your procedure. 238 grams PO ONCE 1 day 238 grams 0RF Patient Instructions: Reviewed procedure report, pathology as well as recommendation- Worsening acid reflux will begin pantoprazole 40 mg daily Reflux precautions reviewed Repeat colonoscopy 3-6 months please add EGD r/o-Hernandez's, PUD, nonulcer dyspepsia, esophagitis or other endoscopic findings to account for his symptoms. Opportunity for questions- MiraLax Gatorade prep-reviewed, literature given Encouraged to call with questions or concerns Coding Level of Care Code Est Pt Level 3 (47448) Diagnoses Tubular adenoma of colon D12.6 Diverticulosis of colon K57.30 Acid reflux K21.9 Time Spent (min) 30
[2023-05-28 07:42] VITALS: BP 133/69; PULSE 78; BMI 31.2
== END 2023-05-28 08:53 | disposition home or self-care (01) ==
PROVIDERS: PCP Family Medicine; Visit Provider Physician Assistant
DX: D12.6 Benign neoplasm of colon, unspecified (principal); K57.30 Diverticulosis of large intestine without perforation or abscess without bleeding; K21.9 Gastro-esophageal reflux disease without esophagitis
CPT/HCPCS: 99213

== ENCOUNTER → 2023-05-28 07:21 | Outpatient (BNVA) | payer OTHER, SELFPAY | PROVIDERS: PCP Family Medicine; Visit Provider Physician Assistant | DX: K57.30 Diverticulosis of large intestine without perforation or abscess without bleeding (principal); K21.9 Gastro-esophageal reflux disease without esophagitis; D12.6 Benign neoplasm of colon, unspecified | CPT/HCPCS: 99212 ==

== ENCOUNTER 2023-07-02 08:10 | Outpatient (AMB) | payer OTHER, SELFPAY ==
--- NOTE | 2023-07-02 08:34 | MHC.PC.OV ---
Vital Signs 07/02/23 08:35 Height 6 ft Weight 240 lb 8 oz BMI 32.6 BP 120/70 Blood Pressure Location Lt brachial Position Sitting Respiration 13 Pulse 64 Pulse Source Pulse Oximeter Pulse Oximetry (%) 94 Oxygen Delivery Method Room Air Intake Visit Reasons: f/u diabetes Intake Note: Patient is here to discuss diabetes. Patient reports he has no concerns at this time. Patient is accomopanied by his - Jennifer. Manager Customer Service Required: No Accompanied by: Spouse Allergies No Known Allergies Allergy (Verified 07/02/23 08:40) Tobacco use date assessed: 02/25/23 HPI f/u diabetes HPI Details 63 y/o male presents to f/u diabetes as well as HLD with CAD. Had adjusted his glipizide - had recommended him to use glipizide ER 5mg in the morning with his breakfast and 5mg before lunch. He is also on Jardiance. Last A1c 8.4%. A1c today 07/02/23 is 8.8%. He continues his medication regimen. He notes he has trialed metformin once which he did not tolerate and had made him feel lethargic. No recent lipids to review. HPI Comments History of Present Illness Details Documentation assistance for Reji Lancaster MD, was provided by Jameson Huggins, Branch Administrator on 07/02/2023 8:49 AM MOE. I, Dr. Lancaster, have read, observed, and verified documentation. 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 Eliceo Ortiz, Adriana Butler, Nicolas Osorio and colleagues, with an educational gerard from [employer]. Review of Systems Const Denies chills, Denies fatigue, Denies fever(s), Denies headache(s) and Denies weakness ENT Denies dizziness and Denies headache(s) Card Denies dyspnea Resp Denies cough, Denies dyspnea, Denies wheezing and Denies other (shortness of breath) Musc Denies numbness and Denies tingling Neuro Denies dizziness, Denies headache(s), Denies numbness, Denies tingling and Denies weakness Psych Denies anxiety and Denies depression Endo Denies fatigue Aller/Immun Denies wheezing Physical exam (Primary Care) Vital Signs: Last Vital Signs Pulse 64 07/02/23 08:35 Resp 13 07/02/23 08:35 BP 120/70 07/02/23 08:35 Pulse Ox 94 07/02/23 08:35 Oxygen Delivery Method Room Air 07/02/23 08:35 BMI result Body Mass Index 32.6 Tobacco/Smoking Status: Tobacco use Status Tobacco use date assessed 02/25/23 07/02/23 08:40 Patient Tobacco Use Status Never used Tobacco 07/02/23 08:40 e-Cigarette/Vaping Use Never Used 07/02/23 08:40 Thrive Assessment: Date of Thrive Assessment Date Thrive assessed 06/13/22 07/02/23 08:40 Const General: well developed; No acute distress Nutritional Appearance: well nourished Orientation/consciousness: patient oriented x3 HENMT Head: Yes normocephalic and Yes atraumatic Eyes General: appearance normal, both eyes and all related structures Pupils: Equal, round and reactive pupils present EOM: EOMs intact bilaterally Resp Effort & Inspection: normal respiratory effort Auscultation: clear to auscultation bilaterally Cardio Rate: regular rate Rhythm: regular rhythm Heart sounds: S1 normal heart sound present, S2 normal heart sound present, no gallops, no murmurs and no rubs Neuro General: patient oriented x3 and gait normal Cranial nerves: Yes Equal, round and reactive pupils present Psych Affect: normal affect Results AMB Hemoglobin A1c AMB Hemoglobin A1c 8.8 % Last Edit by Noemí Cantu CMA on 07/02/23 08:44 Results Reviewed Results Reviewed: Laboratory Last Values Hgb A1c (Clinic) 8.8 % (4.0-6.0) H 07/02/23 08:43 Assessment and Plan Assessment & Plan (1) Diabetes: Code(s): E11.9 - Type 2 diabetes mellitus without complications Plan: A1c?8.8%.??Poorly/uncontrolled?diabetes.??A1c?goal?is?less?than?7.0% Continue?Jardiance?and?glipizide?as?prescribed. Adding?Trulicity Encouraged?exercise?and?weight?loss?and?a?diabetic?diet. Orders: Orders AMB Hemoglobin A1c Today E11.9 - Type 2 diabetes mellitus without complications Medications: New dulaglutide (Trulicity) 0.75 mg (0.5 mL) subcut QWEEK 2 mL 3RF 28 days Coding Level of Care Code Est Pt Level 3 (20531) Diagnoses Diabetes E11.9
[2023-07-02 08:35] VITALS: BP 120/70; PULSE 64; RESP 13; O2SAT 94; BMI 32.6
== END 2023-07-02 08:59 | disposition home or self-care (01) ==
PROVIDERS: PCP Family Medicine; Visit Provider Family Medicine
DX: E11.9 Type 2 diabetes mellitus without complications (principal)
CPT/HCPCS: 83036; 99213

== ENCOUNTER 2023-08-27 06:38 | Day surgery (SDC) | payer OTHER, SELFPAY ==
--- NOTE | 2023-08-26 11:38 | HO.ANESPROP2 ---
Documented by User: Jenise Cody NP 08/26/23 13:30 HPI - Anesthesia Eval Consult details Narrative: 63yo M for Upper Endoscopy and Colonoscopy s/p colo with clip 04/2023 with MAC Follows [facility] - last seen 04/2022 with c/o SOB - w/u with echo and stress - nml so no need for cath. Per [facility] with pt 05/12/2023, no CP/SOB with activity. (No visits since per [facility]) Follows [facility] - last seen 04/2023, stable Anesthesia Pre-Procedure Meds Is the patient on any of the following meds?: Any other SGL-1 drugs or drugs that delay gastric emptying (Jardiance) PMFSH Active Problems Active Problems: All Active Problems (Updated 05/29/23 @ 09:44 by Wilma Abdullahi PA-C) Acid reflux (Acute) Diverticulosis of colon (Acute) Tubular adenoma of colon (Acute) Fungal infection of foot (Acute) Personal history of colonic polyps (Acute) Otalgia (Acute) Left ear impacted cerumen (Acute) Diabetes (Acute) Elevated liver enzymes (Acute) Screening for prostate cancer (Acute) Screening for colon cancer (Acute) Adult general medical examination (Acute) Elevated fasting glucose (Acute) Throat discomfort (Acute) Right sided sciatica (Acute) Pulmonary nodules (Acute) Coronary artery disease (Acute) History of MD (myocardial infarction) (Acute) Hyperlipidemia (Acute) COPD (chronic obstructive pulmonary disease) (Acute) Hypertension (Acute) Laboratory exam ordered as part of routine general medical examination (Acute) Past Medical History Medical History Carpal tunnel syndrome Heart disease COPD (chronic obstructive pulmonary disease) Family History Family History Unknown Adopted Surgical History Surgical History History of heart artery stent Hx of colonoscopy History of surgery on right wrist Hx of knee surgery History of nasal surgery History of Problems with Anesthesia: No Social History Social History Housing: House Patient Tobacco Use Status: Former Tobacco user Quit Date: 21 years ago e-Cigarette/Vaping Use: Never Used Second Hand Smoke Exposure: No Use of substances other than those prescribed or required for medical reasons: No Are you DNR?: No Advance Directives: No Advance Directives Information Provided: Yes service: Yes (Retired [employer]) Current occupational status: 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 Current occupational exposures/hazards: No Cognitive needs: No Hearing needs: No Vision needs: No Meds Allergies Allergy/AdvReac Type Severity Reaction Status Date / Time No Known Allergies Allergy Verified 07/02/23 08:40 Home Medications Medication Instructions Recorded Confirmed Last Taken Type albuterol sulfate 90 mcg/actuation 2 puff inhalation Q4-6H PRN dyspnea 06/13/22 08/27/23 Unknown History aerosol inhaler aspirin 81 mg tablet,delayed 81 mg PO DAILY 06/13/22 08/27/23 08/23/23 History release (Adult Aspirin Regimen) Assessment and Plan Final Anesthetic Review History of Problems with Anesthesia: No Documented by User: Dilia Padgett MD 08/27/23 07:57 HPI - Anesthesia Eval Anesthesia Pre-Procedure Meds If Yes to any meds - educate patient: Pt education - increased risk of aspiration and Pt education - possibility of cancelled proc at provider's discretion PMFSH Past Medical History Medical History Carpal tunnel syndrome Heart disease COPD (chronic obstructive pulmonary disease) Family History Family History Unknown Adopted Surgical History Surgical History History of heart artery stent Hx of colonoscopy History of surgery on right wrist Hx of knee surgery History of nasal surgery Social History Social History Housing: House Patient Tobacco Use Status: Former Tobacco user Quit Date: 21 years ago e-Cigarette/Vaping Use: Never Used Second Hand Smoke Exposure: No Use of substances other than those prescribed or required for medical reasons: No Are you DNR?: No Advance Directives: No Advance Directives Information Provided: Yes service: Yes (Retired [employer]) 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 occupational status: 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 Current occupational exposures/hazards: No Cognitive needs: No Hearing needs: No Vision needs: No Meds Allergies Allergy/AdvReac Type Severity Reaction Status Date / Time No Known Allergies Allergy Verified 07/02/23 08:40 Home Medications Medication Instructions Recorded Confirmed Last Taken Type albuterol sulfate 90 mcg/actuation 2 puff inhalation Q4-6H PRN dyspnea 06/13/22 08/27/23 Unknown History aerosol inhaler aspirin 81 mg tablet,delayed 81 mg PO DAILY 06/13/22 08/27/23 08/23/23 History release (Adult Aspirin Regimen) Exam Airway Mallampati Class: III TM Dist: >3cm Neck ROM: Limited Heart: rrr Lungs: cta Assessment and Plan Assessment Anesthesia Assessment: Anesthesia Plan Discussed and Chart Reviewed Final Anesthetic Review NPO: Yes ASA Class: III Final Preanesthetic Review: No Changes in Pt Med Stat, Meds/Allgs Chart Reviewed, Consent Obtained/Reviewed and Anes Risks/Benef Reviewed Patient Risk: Intermediate Procedure Risk: Low Anesthetic Plan Anesthetic Plan: MAC: Disposition: Standard PACU
[2023-08-27 07:28] VITALS: BP 128/74; PULSE 63; RESP 18; TEMP 36.2; O2SAT 98; BMI 29.7
[2023-08-27 07:38] LABS: Glucose, Whole Blood 135 mg/dL (60-115)
[2023-08-27] MEDS: Lactated Ringers 1,000 ML 100 ML IVCONT (07:53)
--- NOTE | 2023-08-27 08:41 | MHC.SHP ---
Pre-Procedural Eval Section A - 24 Hr Update-Section A only Date of Service: 08/27/23 Section B - Complete if H&P > 30 days Chief Complaint: Personal history of colonic polyps,gerd, Relevant Family History (Specify if Yes): No Relevant Social History: None Present Medications: see Short Stay Collaborative assessment Medical History: Significant History (Carpal tunnel syndrome Heart disease COPD (chronic obstructive pulmonary disease)) History of Previous Operations: Relevant previous surgery/procedure and date(s) (History of heart artery stent Hx of colonoscopy History of surgery on right wrist Hx of knee surgery History of nasal surgery) Allergies: Allergies Allergy/AdvReac Type Severity Reaction Status Date / Time No Known Allergies Allergy Verified 07/02/23 08:40 Review of Systems Sugical H&P ROS: Negative: Constitution, Cardiovascular, Respiratory, Neurological, Psychiatric, Hem-Onc, Allergic/Immunologic, Gastrointestinal, Genitourinary, Musculoskeletal, Integumentary, Endocrine and Eyes/Ears/Nose/Throat Exam Surgical H&P Exam: Normal: HEENT, Normal: Heart, Normal: Lungs, Normal: Extremities, Normal: Abdomen, Normal: Skin and Normal: Neurological Plan Diagnosis/Plan: Unchanged I have reviewed the history and physical and performed a pertinent physical examination on my patient. No changes have occurred unless specified. Time Spent With Patient Time: Total time managing care of this patient today ____ minutes.
--- NOTE | 2023-08-27 08:42 | W.PM.OPN ---
Operative Note Operative Note Date of Service: 08/27/23 Narrative: Operative Information Procedure Description: EGD, Colonoscopy Indication: GERd, hx of colon polyp with dysplasia Anesthesia: MAC FLEXIBLE TRANSORAL UPPER GASTROINTESTINAL ENDOSCOPY AND COLONOSCOPY PROCEDURE NOTE UPPER ENDOSCOPY Consent: Indications for the procedure and potential complications of bleeding, perforation, reaction to medications and missed diagnosis were discussed with the patient and informed consent was obtained. Instrument: Olympus GIF H 190 J mid size upper endoscope Monitoring: Vital signs and clinical assessment, continuous EKG monitoring, Pulse oximetry, Carbon Dioxide monitoring and blood pressure monitoring were done throughout the procedure. Procedure: The patient was placed in the left lateral decubitis position and pre-procedure medications were administered and a bite block was placed. The endoscope was inserted into the mouth and advanced under direct vision to the third part of duodenum. A careful inspection was made as the upper endoscope was withdrawn including a retroflexed examination of the proximal stomach; Findings and interventions are described below. Findings: Larynx:normal Esophagus: GE junction at 38 cm, diaphragm hiatus at 40 cm, consistent with 2 cm sliding hiatal hernia, schatzki ring noted, bx taken from GEJ and distal esophagus Stomach:Patchy erythema and edema . Biopsies were obtained. Grade 2 flap valve on retroflexed examination of the cardia. Duodenum: Normal bulb and descending duodenum, Intervention: Biopsies as noted above COLONOSCOPY Instrument: Olympus variable stiffness pediatric scope 190L Colonoscopy Monitoring: Vital signs and clinical assessment, continuous EKG monitoring, Pulse oximetry, Carbon Dioxide monitoring and blood pressure monitoring were done throughout the procedure. Colon withdrawal time was 12 minutes. Procedure: The patient was placed in the left lateral decubitis position and pre-procedure medications were administered. After a digital rectal examination of the ano-rectum, the video colonoscope was inserted into the rectum and advanced through the colon to the cecum/TI. The colonoscope was slowly withdrawn in a retrograde panoramic fashion and the colon mucosa was carefully examined including a retroflexed view of the rectum. Findings and interventions are described below. Procedure Difficulty: easy Findings: Terminal Ileum-normal Cecum:normal Rigth sided retroflexion- normal Ascending Colon: normal Transverse Colon -normal Descending Colon: x 2 sessile polyps 6-8 mm removed with cold snare Sigmoid Colon: moderate diverticulosis, no residual polyp tissue noted at 30 cm from prior resection site of polyp with HGD Rectum: Retroflexion with small internal hemorrhoids, grade I Anorectum - normal Colon preparation: [facility] Bowel Preparation Scale Right colon; 2 Transverse colon: 2 Left colon; 2 (0 = Unprepared colon segment with mucosa not seen due to solid stool that cannot be cleared. 1 = Portion of mucosa of the colon segment seen, but other areas of the colon segment not well seen due to staining, residual stool and/or opaque liquid. 2 = Minor amount of residual staining, small fragments of stool and/or opaque liquid, but mucosa of colon segment seen well. 3 = Entire mucosa of colon segment seen well with no residual staining, small fragments of stool or opaque liquid) Impression and Post Procedure Diagnosis: Endoscopy Findings: gastritis esophagitis hiatal hernia schatzki ring Colonoscopy Findings: polyps internal hemorrhoids diverticular disease Plan: Await Pathology results Repeat Colonoscopy in 1 year or earlier if clinically indicated High fiber diet leaflet avoid straining at stool, epsom salts and sitz bath, anusol supps or cream cont with PPI as works well (imaging last year with diffuse hepatic steatosis, plts were nml, if any concern for PHG and neg bx then maybe reimage and recheck labs) Above findings were reviewed with the patient and relevant handouts were provided if indicated.
[2023-08-27 09:19] VITALS: BP 98/48; PULSE 55; RESP 16; TEMP 36.1; O2SAT 96
[2023-08-27 09:34] VITALS: BP 131/72; PULSE 55; RESP 16; TEMP 36.8; O2SAT 96
== END 2023-08-27 10:11 | disposition home or self-care (01) ==
PROVIDERS: PCP Family Medicine; Visit Provider Internal Medicine Gastroenterology
PROC: (CPT 45385; principal; 2023-08-27 09:20)
DX: Z12.11 Encounter for screening for malignant neoplasm of colon (principal); Z86.010 Personal history of colon polyps; D12.4 Benign neoplasm of descending colon; K55.20 Angiodysplasia of colon without hemorrhage; K57.30 Diverticulosis of large intestine without perforation or abscess without bleeding; K64.0 First degree hemorrhoids; K21.9 Gastro-esophageal reflux disease without esophagitis; K22.2 Esophageal obstruction; K29.50 Unspecified chronic gastritis without bleeding; K20.80 Other esophagitis without bleeding; K44.9 Diaphragmatic hernia without obstruction or gangrene; J44.9 Chronic obstructive pulmonary disease, unspecified; E11.9 Type 2 diabetes mellitus without complications; I25.10 Atherosclerotic heart disease of native coronary artery without angina pectoris; Z95.5 Presence of coronary angioplasty implant and graft; Z87.891 Personal history of nicotine dependence; Z79.82 Long term (current) use of aspirin; Z79.84 Long term (current) use of oral hypoglycemic drugs; Z79.51 Long term (current) use of inhaled steroids; Z79.899 Other long term (current) drug therapy
CPT/HCPCS: 45385; 43239; 82947; 88305; 88313; 88342; J2250; J2704

== ENCOUNTER → 2023-08-27 06:38 | Outpatient (BNV) | payer OTHER, SELFPAY | PROVIDERS: PCP Family Medicine; Visit Provider Internal Medicine Gastroenterology | DX: K21.00 Gastro-esophageal reflux disease with esophagitis, without bleeding (principal); K22.2 Esophageal obstruction; K29.70 Gastritis, unspecified, without bleeding; Z12.11 Encounter for screening for malignant neoplasm of colon; Z86.010 Personal history of colon polyps; D12.4 Benign neoplasm of descending colon; K55.20 Angiodysplasia of colon without hemorrhage | CPT/HCPCS: 43239; 45385 ==

== ENCOUNTER 2023-09-29 09:17 | Outpatient (AMB) | payer OTHER, SELFPAY ==
--- NOTE | 2023-09-29 09:32 | A.OFFVIS_ITS ---
Intake Vital Signs 09/29/23 09:39 Height 6 ft Weight 217 lb BMI 29.4 BP 121/65 Blood Pressure Location Lt brachial Position Sitting Pulse 60 Intake Visit Reasons: Colonoscopy results Intake Note: Patient follow up for Colonoscopy/EGD results. Patient denies any GI issues. Cylinder Filler Required: No Accompanied by: Self / Same As Patient Allergies No Known Allergies Allergy (Verified 07/02/23 08:40) Medication List - Last Reconciled 09/29/23 by Wilma Abdullahi PA-C albuterol sulfate 90 mcg/actuation 2 puffs inhalation Q4-6H PRN aspirin (Adult Aspirin Regimen) 81 mg PO DAILY atorvastatin 80 mg PO DAILY 90 days blood sugar diagnostic (FreeStyle Lite Strips) DX: E11.9, test blood sugar 2 times a day, 90 days blood-glucose meter (FreeStyle Lite Meter kit) DX: E11.9, test blood sugar 2 times a day, duration 999 days blood-glucose sensor (FreeStyle Heraclio 3 Sensor device) Every 14 days As directed, 28 days carbamide peroxide 6.5% (Debrox) 5 drps otic (ears) DAILY 4 days empagliflozin 25 mg PO DAILY 30 days glipizide ER 5 mg PO BID 30 days lancets (FreeStyle Lancets) As directed losartan-hydrochlorothiazide 50-12.5 mg 1 tab PO DAILY 90 days pantoprazole 40 mg PO DAILY 30 days tizanidine 4 mg PO Q8H PRN 30 days HPI HPI Comments History of Present Illness Details 63-year-old male with personal history o f multiple colon polyps follows up after recent EGD colonoscopy with polypectomy with Dr. Jacobs Tolerated procedure well He is taking pantoprazole 40 mg- daily- Reviewed procedure report, path and recommendations- Declines genetic testiing Discussed HP testing-he declined ADDENDUMsmall non bleeding AVM in cecum TD/TT: 08/27/23 ADDENDUMoffered geentic testing as he has had cumulative polyp count >20 over all colonoscopies--he will consider and let me know if he wishes to proceed Impression and Post Procedure Diagnosis: Endoscopy Findings: gastritis esophagitis hiatal hernia schatzki ring Colonoscopy Findings: polyps internal hemorrhoids diverticular disease On 09/02/23 @ 09:36 Conchis Lau Wrote To Cedric Jacobs I called and tell pt adenomas removed repeat colo in 1 year also he has chronic inflammation of stosmch, recommend h pylori --stop ppi for 2 weeks. I remind his follow up for 09/24. On 08/29/23 @ 16:37 Cedric Jacobs Wrote To Cathleen Rodriguez pls tell pt adenomas removed repeat colo in 1 year also he has chronic inflammation of stosmch, recommend h pylori --stop ppi for 2 weeks [facility] Medical History (Updated 09/30/23 @ 10:05 by Wilma Abdullahi PA-C) Carpal tunnel syndrome Heart disease COPD (chronic obstructive pulmonary disease) Surgical History History of esophagogastroduodenoscopy (EGD) History of heart artery stent Hx of colonoscopy History of surgery on right wrist Hx of knee surgery History of nasal surgery Family History Unknown Adopted Social History Housing: House Patient Tobacco Use Status: Former Tobacco user Quit Date: 21 years ago e-Cigarette/Vaping Use: Never Used Second Hand Smoke Exposure: No service: Yes (Retired [employer]) Current occupational status: retired 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 Current occupational exposures/hazards: No Cognitive needs: No Hearing needs: No Vision needs: No Review of Systems Const All systems reviewed & are unremarkable except as noted in HPI and below Physical Exam Vital Signs: Last Vital Signs Pulse 60 09/29/23 09:39 BP 121/65 09/29/23 09:39 BMI result Body Mass Index 29.4 Const General: cooperative, healthy appearing, comfortable and no acute distress Orientation/consciousness: patient oriented x3 Limitations: no limitations Resp Effort & Inspection: normal respiratory effort and able to speak in complete sentences Skin General skin exam: no rashes or lesions noted Neuro General: patient oriented x3 Extrem General: Yes full ROM Psych Appearance: grossly normal and well kempt Mental Status: mental status grossly normal Speech and movement: Normal speech and movement present and Clear speech present Attitude: cooperative Thought process: Normal thought process present Thought content: Normal thought content present Insight: Good insight present (Psych) Judgement: Good judgement present (Psych) Results Reviewed Results Reviewed: mpression and Post Procedure Diagnosis: Endoscopy Findings: gastritis esophagitis hiatal hernia schatzki ring Colonoscopy Findings: polyps internal hemorrhoids diverticular disease Plan: Await Pathology results Repeat Colonoscopy in 1 year or earlier if clinically indicated High fiber diet leaflet avoid straining at stool, epsom salts and sitz bath, anusol supps or cream cont with PPI as works well (imaging last year with diffuse hepatic steatosis, plts were nml, if any concern for PHG and neg bx then maybe reimage and recheck labs) Above findings were reviewed with the patient and relevant handouts were provided if indicated. Assessment & Plan Assessment & Plan (1) Tubular adenoma of colon: Comment: Discuss genetic test Code(s): D12.6 - Benign neoplasm of colon, unspecified Plan: Repeat colonoscopy 1 year Declines genetic testing (2) Esophagitis: Code(s): K20.90 - Esophagitis, unspecified without bleeding (3) Schatzki's ring: Code(s): K22.2 - Esophageal obstruction (4) Hiatal hernia: Code(s): K44.9 - Diaphragmatic hernia without obstruction or gangrene (5) Hemorrhoids: Code(s): K64.9 - Unspecified hemorrhoids Plan: Maintain high-fiber diet avoid strain Plan Repeat colonoscopy 1 Discussed genetic test due to multiple polyps Patient Instructions: Remy 63-year-old Gent personal history multiple colon follows up after recent EGD colonoscopy with polypectomy Repeat colonoscopy 1 year Declined genetic testing at this time-reinforced importance medical history for all first-degree relatives Should he reconsider we will proceed Encouraged to call with questions or concerns Appreciate the opportunity assist in care this remy Campoverde Coding Level of Care Code Est Pt Level 3 (45644) Diagnoses Tubular adenoma of colon D12.6 Esophagitis K20.90 Schatzki's ring K22.2 Hiatal hernia K44.9 Hemorrhoids K64.9 Time Spent (min) 35
[2023-09-29 09:39] VITALS: BP 121/65; PULSE 60; BMI 29.4
== END 2023-09-29 11:06 | disposition home or self-care (01) ==
PROVIDERS: PCP Family Medicine; Visit Provider Physician Assistant
DX: D12.6 Benign neoplasm of colon, unspecified (principal); K20.90 Esophagitis, unspecified without bleeding; K22.2 Esophageal obstruction; K44.9 Diaphragmatic hernia without obstruction or gangrene; K64.9 Unspecified hemorrhoids
CPT/HCPCS: 99213

== ENCOUNTER → 2023-09-29 09:17 | Outpatient (BNVA) | payer OTHER, SELFPAY | PROVIDERS: PCP Family Medicine; Visit Provider Physician Assistant ==

== ENCOUNTER 2023-10-01 08:12 | Outpatient (AMB) | payer OTHER, SELFPAY ==
--- NOTE | 2023-10-01 08:17 | MHC.PC.OV ---
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 Last A1c 07/02/23 8.8%. A1c today 10/01/23 6.8%. He is on glipizide 5mg b.i.d. and empagliflozin 25mg daily. Blood pressure today 124/80. He is on losartan-hydrochlorothiazide 50-12.5mg daily. [facility] Medical History (Updated 09/30/23 @ 10:05 by Wilma Abdullahi PA-C) Carpal tunnel syndrome Heart disease COPD (chronic obstructive pulmonary disease) Surgical History History of esophagogastroduodenoscopy (EGD) History of heart artery stent Hx of colonoscopy History of surgery on right wrist Hx of knee surgery History of nasal surgery Family History Unknown Adopted Social History Housing: House Patient Tobacco Use Status: Former Tobacco user Quit Date: 21 years ago e-Cigarette/Vaping Use: Never Used Second Hand Smoke Exposure: No service: Yes (Retired [employer]) Current occupational status: retired 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 1. Little interest or pleasure in doing things: not at all 2. Feeling down, depressed, or hopeless: not at all 3. Trouble falling or staying asleep, or sleeping too much: not at all 4. Feeling tired or having little energy: not at all 5. Poor appetite or overeating: not at all 6. Feeling bad about yourself - or that you are a failure or have let yourself or your family down: not at all 7. Trouble concentrating on things, such as reading the newspaper or watching television: not at all 8. Moving or speaking so slowly that other people could have noticed. Or the opposite - being so fidgety or restless that you have been moving around a lot more than usual: not at all 9. Thoughts that you would be better off or of hurting yourself in some way: not at all Total score: 0 Depression Screening Interpretation: Negative Depression Screening Done: Yes [id number] - PHQ-9 Billing: Yes Source: Developed by Drs. Eliceo Ortiz, Adriana Butler, Nicolas Osorio and colleagues, with an educational gerard from [employer]. Thrive Questionnaire Date Thrive assessed: 06/13/22 Currently or been in a relationship where the following occur: no concerns reported THRIVE Score: 0 AUDIT C Alcohol Use Questionnaire (AUDIT-C) 1. How often do you have a drink containing alcohol?: Monthly or less 2. How many drinks containing alcohol do you have on a typical day when you are drinking?: 1 or 2 3. How often do you have six or more drinks on one occasion?: Never Total Score: 1 DEREK-7 AMB Questionnaire DEREK-7 Date DEREK - 7 assessed: 10/01/23 Feeling nervous, anxious, or on edge: 0 = Not at all Not being able to stop or control worryin = Not at all Worrying too much about different things: 0 = Not at all Trouble relaxin = Not at all Being so restless that it is hard to sit still: 0 = Not at all Becoming easily annoyed or irritable: 0 = Not at all Feeling afraid as if something awful might happen: 0 = Not at all Total DEREK-7 score (0-4 normal; 5-9 mild; 10-14 moderate; 15-21 severe): 0 Source: Developed by Adriana Connor Luke, Nicolas Osorio and colleagues, with an educational gerard from [employer]. DEREK-7 Assessment Billing DEREK-7 Assessment Tool: DEREK-7 Assessment 31574 Review of Systems Const Denies chills, Denies fatigue, Denies fever(s), Denies headache(s) and Denies weakness ENT Denies dizziness and Denies headache(s) Card Denies dyspnea Resp Denies cough, Denies dyspnea, Denies wheezing and Denies other (shortness of breath) Musc Denies numbness and Denies tingling Neuro Denies dizziness, Denies headache(s), Denies numbness, Denies tingling and Denies weakness Psych Denies anxiety and Denies depression Endo Denies fatigue Aller/Immun Denies wheezing Physical exam (Primary Care) Vital Signs: Last Vital Signs Temp 97.9 F 10/01/23 08:22 Pulse 57 10/01/23 08:22 Resp 14 10/01/23 08:22 BP 124/80 10/01/23 08:22 Pulse Ox 97 10/01/23 08:22 Oxygen Delivery Method Room Air 10/01/23 08:22 BMI result Body Mass Index 30.6 Tobacco/Smoking Status: Tobacco use Status Tobacco use date assessed 10/01/23 10/01/23 08:22 Patient Tobacco Use Status Former Tobacco user 10/01/23 08:22 e-Cigarette/Vaping Use Never Used 10/01/23 08:22 PHQ-9: PHQ-9 Score PHQ-9: Total score 0 10/01/23 08:31 Depression Screening Interpretation: Negative Thrive Assessment: Date of Thrive Assessment Date Thrive assessed 06/13/22 10/01/23 08:22 Currently or been in a relationship where the following occur: no concerns reported Const General: well developed; No acute distress Nutritional Appearance: well nourished Orientation/consciousness: patient oriented x3 HENMT Head: Yes normocephalic and Yes atraumatic Eyes General: appearance normal, both eyes and all related structures Pupils: Equal, round and reactive pupils present EOM: EOMs intact bilaterally Resp Effort & Inspection: normal respiratory effort Auscultation: clear to auscultation bilaterally Cardio Rate: regular rate Rhythm: regular rhythm Heart sounds: S1 normal heart sound present, S2 normal heart sound present, no gallops, no murmurs and no rubs Neuro General: patient oriented x3 and gait normal Cranial nerves: Yes Equal, round and reactive pupils present Psych Affect: normal affect Results AMB Hemoglobin A1c AMB Hemoglobin A1c 6.8 % Last Edit by Sade Osullivan CMA on 10/01/23 08:34 Results Reviewed Results Reviewed: Laboratory Last Values Hgb A1c (Clinic) 6.8 % (4.0-6.0) H 10/01/23 08:29 Assessment and Plan Assessment & Plan (1) Diabetes: Code(s): E11.9 - Type 2 diabetes mellitus without complications Plan: Patient?was?unable?to?obtain?Trulicity?so?he?continued?glipizide?and?Jardiance He?improved?his?diet?and?begin?exercising. A1c?now?6.8%?which?is?at?goal?of?less?than?7.0% However,?patient?says?he?will?be?unable?to?continue?Jardiance?due?to?cost?and?is?almost?out?of?this?medication. He?is?willing?to?try?Lantus Start?Lantus?10?units?daily He?will?call?if?his?sugars?are?off?and?we?can?adjust?by?phone Will?follow-up?in?3?months?at?his?next?appointment?or?sooner?if?he?is?having?problems Due?for?his?next?eye?exam?in?May?and?I?reminded?him?of?this Orders: Orders AMB Hemoglobin A1c Today E11.9 - Type 2 diabetes mellitus without complications Medications: New insulin glargine (Lantus Solostar U-100 Insulin) 10 units (0.1 mL) subcut QPM 3 mL 3RF 30 days E11.9 - Type 2 diabetes mellitus without complications pen needle, diabetic (BD Ultra-Fine Short Pen Needle) To Treat Blood sugar Daily As directed, 90 days 100 ea 2RF E11.9 - Type 2 diabetes mellitus without complications Discontinued empagliflozin Discontinued Reason: Doctor's Order 25 mg PO DAILY 30 tabs 2RF 30 days E11.9 - Type 2 diabetes mellitus without complications Coding Level of Care Code Est Pt Level 3 (78580) Diagnoses Diabetes E11.9 Additional Codes DEREK-7 Assessment Billing - DEREK-7 Assessment Tool: DEREK-7 Assessment 17789 ([id number])
[2023-10-01 08:22] VITALS: BP 124/80; PULSE 57; RESP 14; TEMP 36.6; O2SAT 97; BMI 30.6
== END 2023-10-01 08:50 | disposition home or self-care (01) ==
PROVIDERS: PCP Family Medicine; Visit Provider Family Medicine
DX: E11.9 Type 2 diabetes mellitus without complications (principal)
CPT/HCPCS: 83036; 99213

== ENCOUNTER 2023-12-24 09:20 | Outpatient (REF) | payer OTHER, SELFPAY ==
[2023-12-24 11:13] LABS: MANUAL DIFF FLAG NO
[2023-12-24 11:28] LABS: Basophils Absolute Auto 0.1 X10*3/uL (0.0-0.2); Eosinophils Absolute Auto 0.1 X10*3/uL (0.0-0.4); Eosinophils Percent Auto 2.3 % (0-4); Hemoglobin 16.8 g/dl (14.0-18.0); Imm Gran Abs Auto 0.02 X10*3/uL (0.00-0.03); Imm Gran Pct Auto 0.3 % (0.0-0.4); Lymphocytes Absolute Auto 1.8 X10*3/uL (1.2-4.9); Lymphocytes Percent Auto 30.2 % (20-40); Mean Corpuscular HGB Conc 32.9 g/dl (31.0-36.0); Mean Corpuscular Hemoglobin 29.1 pg (27.0-33.0); Mean Corpuscular Volume 88.4 fL (80.0-98.0); Mean Platelet Volume 10.7 fL (9.4-12.4); Monocytes Absolute Auto 0.3 X10*3/uL (0.1-1.2); Neutrophils Absolute Auto 3.7 x10*3/uL (2.0-8.3); Neutrophils Percent Auto 61.2 % (45-73); Platelet Count 187 X10*3/uL (160-400); Red Blood Count 5.77 X10*6/uL (4.60-5.80); Red Cell Distribution Width 13.9 % (11.0-16.0); White Blood Count 6.1 X10*3/uL (4.8-10.8)
[2023-12-24 11:32] LABS: Appearance Urine Clear; Color Urine Yellow; Glucose Urine UA Negative (Negative); Leukocyte Esterase Urine Negative (Negative); Nitrite Urine Negative (Negative); Specific Gravity - Urine 1.025 (1.005-1.025); Urine Blood Negative (Negative); Urine Ketones Negative (Negative); Urine Protein Trace mg/dL (Neg-Trace)
[2023-12-24 11:53] LABS: Alanine Aminotransferase 66 U/L (0-40); Albumin Level 4.2 g/dL (3.5-5.0); Alkaline Phosphatase 78 U/L (39-117); Anion Gap 12 (12-20); Aspartate Amino Transferase 39 U/L (5-37); Bilirubin Total 0.6 mg/dL (0.0-1.0); Blood Urea Nitrogen 20 mg/dL (9-16); Calcium 10.1 mg/dL (8.4-10.2); Carbon Dioxide 29 mmol/L (22-29); Chloride 108 mmol/L (96-108); Estimated Glomerular Filt Rate > 60; Glucose Fasting 147 mg/dL (60-99); Sodium 144 mmol/L (135-145); Total Protein 7.1 g/dL (6.5-8.0)
[2023-12-24 12:09] LABS: TSH reflex Free T4 2.73 uIU/mL (0.32-4.0)
[2023-12-24 12:12] LABS: Prostate Specific Antigen Scr 0.25 ng/mL (<0.05-4.0)
[2023-12-24 12:35] LABS: Creatinine Urine 201.75 mg/dL; Microalbum/Creatinine Ratio Ur 19.3 ug/mg cr (<30)
== END 2023-12-24 09:21 | disposition home or self-care (01) ==
LOC: HO.HMGCLDS 09:20
PROVIDERS: PCP Family Medicine; Visit Provider Family Medicine
DX: Z00.00 Encounter for general adult medical examination without abnormal findings (principal); Z12.5 Encounter for screening for malignant neoplasm of prostate; I10 Essential (primary) hypertension
CPT/HCPCS: 36415; 80053; 81003; 82043; 82570; 84153; 84443; 85025

== ENCOUNTER 2024-01-07 08:15 | Outpatient (AMB) | payer OTHER, SELFPAY ==
--- NOTE | 2024-01-07 08:18 | MHC.PC.OV ---
Vital Signs 01/07/24 08:21 Height 6 ft Weight 227 lb 2 oz BMI 30.8 BP 108/70 Blood Pressure Location Lt brachial Position Sitting Respiration 14 Pulse 63 Pulse Source Pulse Oximeter Pulse Oximetry (%) 94 Oxygen Delivery Method Room Air Intake Visit Reasons: CPE with f/u labs and health maintenance Intake Note: Physical. Lab results Allergies No Known Allergies Allergy (Verified 01/07/24 08:19) Medication List - Last Reconciled 01/07/24 by Reji Lancaster MD albuterol sulfate 90 mcg/actuation 2 puffs inhalation Q4-6H PRN aspirin (Adult Aspirin Regimen) 81 mg PO DAILY atorvastatin 80 mg PO DAILY 90 days blood sugar diagnostic (FreeStyle Lite Strips) DX: E11.9, test blood sugar 2 times a day, 90 days blood-glucose meter (FreeStyle Lite Meter kit) DX: E11.9, test blood sugar 2 times a day, duration 999 days blood-glucose sensor (FreeStyle Heraclio 3 Sensor device) Every 14 days As directed, 28 days carbamide peroxide 6.5% (Debrox) 5 drps otic (ears) DAILY 4 days glipizide ER 5 mg PO BID 90 days insulin glargine (Lantus Solostar U-100 Insulin) 10 units (0.1 mL) subcut QPM 30 days lancets (FreeStyle Lancets) As directed losartan-hydrochlorothiazide 50-12.5 mg 1 tab PO DAILY 90 days pantoprazole 40 mg PO DAILY 30 days pen needle, diabetic (BD Ultra-Fine Short Pen Needle) To Treat Blood sugar Daily As directed, 90 days tizanidine 4 mg PO Q8H PRN 30 days Tobacco use date assessed: 10/01/23 Fall risk assessment: No Falls in past year Last assessed Fall Risk: 01/07/24 Dental Screening Dental Screen Date: 10/01/23 HPI CPE with f/u labs and health maintenance HPI Details 63 y/o male presents for a CPE with f/u labs and health maintenance. Labs were drawn 12/24/23. Reviewed labs with pt. Elevated fasting glucose of 147 and last A1c in September was 6.8%. Elevated liver enzymes - AST 39 and ALT 66. Blood pressure today 108/70. He is on losartan-HCTZ 50-12.5mg daily. Has complaints of neoplasm of uncertain behavior of his finger. [facility] Medical History (Updated 01/07/24 @ 09:12 by Reji Lancaster MD) Carpal tunnel syndrome Heart disease COPD (chronic obstructive pulmonary disease) Surgical History History of esophagogastroduodenoscopy (EGD) History of heart artery stent Hx of colonoscopy History of surgery on right wrist Hx of knee surgery History of nasal surgery Family History Unknown Adopted Social History Housing: House Patient Tobacco Use Status: Former Tobacco user e-Cigarette/Vaping Use: Never Used Second Hand Smoke Exposure: No service: Yes (Retired [employer]) Current occupational status: retired 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 Eliceo Ortiz, Adriana Butler, Nicolas Osorio and colleagues, with an educational gerard from [employer]. Physical exam (Primary Care) Vital Signs: Last Vital Signs Pulse 63 01/07/24 08:21 Resp 14 01/07/24 08:21 BP 108/70 01/07/24 08:21 Pulse Ox 94 01/07/24 08:21 Oxygen Delivery Method Room Air 01/07/24 08:21 BMI result Body Mass Index 30.8 Tobacco/Smoking Status: Tobacco use Status Tobacco use date assessed 10/01/23 01/07/24 08:19 Patient Tobacco Use Status Former Tobacco user 01/07/24 08:19 e-Cigarette/Vaping Use Never Used 01/07/24 08:19 Thrive Assessment: Date of Thrive Assessment Date Thrive assessed 06/13/22 01/07/24 08:19 Results AMB Hemoglobin A1c AMB Hemoglobin A1c 7.7 % Last Edit by Shadia Garibay CMA on 01/07/24 08:56 Assessment and Plan Assessment & Plan (1) Adult general medical examination: Code(s): Z00.00 - Encounter for general adult medical examination without abnormal findings (2) Hypertension: Code(s): I10 - Essential (primary) hypertension Plan: Blood?pressure?is?controlled.??Goal?is?less?than?130/80 Continue?current?medication (3) Coronary artery disease: Code(s): I25.10 - Atherosclerotic heart disease of [place] coronary artery without angina pectoris Plan: Stable (4) Fungal infection of foot: Code(s): B35.3 - Tinea pedis Plan: Clotrimazole?cream?x2?weeks Avoid?excess?moisture Keep?skin?healthy (5) Diabetes: Code(s): E11.9 - Type 2 diabetes mellitus without complications Plan: A1c?has?climbed?to?7.7% He?had?been?unable?to?get?Januvia?covered?by?his?insurance?so?we?switched?to?Lantus. He?has?increased?his?Lantus?up?to?16?units?per?day?and?morning?blood?sugars?are?still?consistently?above?150 He?will?increase?Lantus?to?20?units?per?day.??Can?then?increase?by?2?units?per?day?for?each?2?days?that?he?is?still?above?150 (6) Screening for colon cancer: Code(s): Z12.11 - Encounter for screening for malignant neoplasm of colon Plan: By?[facility]?gastroenterology?and?recommendation?for?repeat?colonoscopy?in?a?year. Prior?colonoscopy?showed?polyps?and?tubular?adenoma?as?well?as?diverticulosis. (7) Screening for prostate cancer: Code(s): Z12.5 - Encounter for screening for malignant neoplasm of prostate Plan: PSA?is?within?normal?range. Continue?annual?screening (8) Neoplasm of uncertain behavior of skin: Code(s): D48.5 - Neoplasm of uncertain behavior of skin Plan: Mass?or?abscess?or?neoplasm?on?distal?aspect?of?left?2nd?finger. Check?x-ray?to?rule?out?foreign?body Referred?to?dermatology Orders: Orders Comprehensive Brickeys. Panel Fast Today R74.8 - Abnormal levels of other serum enzymes, Z00.00 - Encounter for general adult medical examination without abnormal findings AMB Hemoglobin A1c Today Z13.9 - Encounter for screening, unspecified XR hand LT min 3V Today D48.5 - Neoplasm of uncertain behavior of skin, R22.32 - Localized swelling, mass and lump, left upper limb Lipid Panel Today E78.5 - Hyperlipidemia, unspecified, Z00.00 - Encounter for general adult medical examination without abnormal findings Microalbumin, Random (w Creat) Today I10 - Essential (primary) hypertension Referrals Dermatology Referral D48.5 - Neoplasm of uncertain behavior of skin Medications: New clotrimazole 1% 1 appl topical BID 2 weeks 45 grams 1RF Coding Level of Care Code Est Pt Level 3 (53759) Est Pt Prev Care >65y(53609) Diagnoses Adult general medical examination Z00.00 Hypertension I10 Coronary artery disease I25.10 Fungal infection of foot B35.3 Diabetes E11.9 Screening for colon cancer Z12.11 Screening for prostate cancer Z12.5 Neoplasm of uncertain behavior of skin D48.5
[2024-01-07 08:21] VITALS: BP 108/70; PULSE 63; RESP 14; O2SAT 94; BMI 30.8
== END 2024-01-07 09:07 | disposition home or self-care (01) ==
PROVIDERS: PCP Family Medicine; Visit Provider Family Medicine
DX: Z00.00 Encounter for general adult medical examination without abnormal findings (principal); E11.9 Type 2 diabetes mellitus without complications; B35.3 Tinea pedis; D48.5 Neoplasm of uncertain behavior of skin; I10 Essential (primary) hypertension; I25.10 Atherosclerotic heart disease of native coronary artery without angina pectoris; Z12.11 Encounter for screening for malignant neoplasm of colon; Z12.5 Encounter for screening for malignant neoplasm of prostate
CPT/HCPCS: 83036; 99213; 99397

== ENCOUNTER 2024-01-09 09:42 | Outpatient (REF) | payer OTHER, SELFPAY ==
[2024-01-09 12:16] LABS: Creatinine Urine 88.87 mg/dL; Microalbum/Creatinine Ratio Ur 15.7 ug/mg cr (<30)
[2024-01-09 12:25] LABS: Alanine Aminotransferase 62 U/L (0-40); Alkaline Phosphatase 72 U/L (39-117); Anion Gap 10 (12-20); Aspartate Amino Transferase 39 U/L (5-37); Bilirubin Total 0.6 mg/dL (0.0-1.0); Blood Urea Nitrogen 21 mg/dL (9-16); Calcium 9.6 mg/dL (8.4-10.2); Carbon Dioxide 28 mmol/L (22-29); Chloride 106 mmol/L (96-108); Cholesterol 181 mg/dL (<200); Estimated Glomerular Filt Rate > 60; Glucose Fasting 142 mg/dL (60-99); HDL Cholesterol 33 mg/dL (>40); LDL Cholesterol Calculated 114 mg/dL (<100); Sodium 140 mmol/L (135-145); Total Protein 6.6 g/dL (6.5-8.0); Triglycerides 172 mg/dL (<150)
== END 2024-01-09 09:43 | disposition home or self-care (01) ==
LOC: HO.WFDLDS 09:42
PROVIDERS: Visit Provider Family Medicine
DX: Z00.00 Encounter for general adult medical examination without abnormal findings (principal); R74.8 Abnormal levels of other serum enzymes; I10 Essential (primary) hypertension; E78.5 Hyperlipidemia, unspecified
CPT/HCPCS: 36415; 80053; 80061; 82043; 82570

== ENCOUNTER 2024-06-07 08:13 | Outpatient (AMB) | payer MEDICARE, OTHER, SELFPAY ==
--- NOTE | 2024-06-07 08:17 | A.OFFPC_ITS ---
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 Allergies No Known Allergies Allergy (Verified 06/07/24 08:25) Medication List - Last Reconciled 06/07/24 by Reji Lancaster MD albuterol sulfate 90 mcg/actuation 2 puffs inhalation Q4-6H PRN aspirin (Adult Aspirin Regimen) 81 mg PO DAILY blood sugar diagnostic (FreeStyle Lite Strips) DX: E11.9, test blood sugar 2 times a day, 90 days blood-glucose meter (FreeStyle Lite Meter kit) DX: E11.9, test blood sugar 2 times a day, duration 999 days blood-glucose sensor (FreeStyle Heraclio 3 Sensor device) Every 14 days As directed, 28 days carbamide peroxide 6.5% (Debrox) 5 drps otic (ears) DAILY 4 days clotrimazole 1% 1 appl topical BID 2 weeks empagliflozin (Jardiance) 25 mg PO QAM 90 days glipizide ER 5 mg PO BID 90 days insulin glargine (Lantus Solostar U-100 Insulin) 10 units (0.1 mL) subcut QPM 30 days lancets (FreeStyle Lancets) As directed losartan-hydrochlorothiazide 50-12.5 mg 1 tab PO DAILY 90 days pantoprazole 40 mg PO DAILY 30 days pen needle, diabetic (BD Ultra-Fine Short Pen Needle) To Treat Blood sugar Daily As directed, 90 days rosuvastatin 40 mg PO DAILY 90 days tizanidine 4 mg PO Q8H PRN 30 days Tobacco use date assessed: 06/07/24 Fall risk assessment: No Falls in past year Last assessed Fall Risk: 06/07/24 Dental Screening Dental Screen Date: 06/07/24 Did you have a dental visit in the last 12 months?: No Did you have a dental problem in the last 6 months where you did not have access to dental care?: No Was dental information given to patient?: Patient declined HPI f/u diabetes HPI Details Patient?presents?to?follow- up?diabetes?and?elevated?liver?enzymes?and?lipids. Pt's A1c was 7.7% at last check in December. Advised?patient?to?i ncrease?Lantus?by?2?units?every?3?days?until?is?morning?blood?sugars?are?consist ently?below?150. Had advised closer f/u of 1 month. Notes he had done better with Jardiance but had not been able to afford it due to insurance. He had not been using the Lantus the past month as he felt it was not working. A1c today 06/07/24 8.7%. Labs drawn 01/09/24. Reviewed labs with pt. Triglycerides 172. TC 181. LDL 114. HDL low at 33. He is on artovastatin 80mg daily. Elevated liver enzymes - AST 39, ALT 62. Liver?enzymes?have?remained?mildly?elevated. He notes he does use a lot of tylenol. LDL?cholesterol?is?elevated?and?he?is?on?atorvastatin?80?mg?daily. His?goal?is?less?than?70 Has complaints of back and shoulder pain while sleeping. Notes tinnitus bilateral ears. 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 ?? [facility] Medical History (Updated 06/07/24 @ 08:54 by Jameson Huggins) Carpal tunnel syndrome Heart disease COPD (chronic obstructive pulmonary disease) Surgical History History of esophagogastroduodenoscopy (EGD) History of heart artery stent Hx of colonoscopy History of surgery on right wrist Hx of knee surgery History of nasal surgery Family History Unknown Adopted Social History Housing: House Patient Tobacco Use Status: Former Tobacco user e-Cigarette/Vaping Use: Never Used Second Hand Smoke Exposure: No service: Yes (Retired [place]) Current occupational status: retired 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 1. Little interest or pleasure in doing things: not at all 2. Feeling down, depressed, or hopeless: not at all 3. Trouble falling or staying asleep, or sleeping too much: not at all 4. Feeling tired or having little energy: not at all 5. Poor appetite or overeating: not at all 6. Feeling bad about yourself - or that you are a failure or have let yourself or your family down: not at all 7. Trouble concentrating on things, such as reading the newspaper or watching television: not at all 8. Moving or speaking so slowly that other people could have noticed. Or the opposite - being so fidgety or restless that you have been moving around a lot more than usual: not at all 9. Thoughts that you would be better off or of hurting yourself in some way: not at all Total score: 0 Source: Developed by Drs. Eliceo Ortiz, Adriana Butler, Nicolas Osorio and colleagues, with an educational gerard from [employer]. Thrive Questionnaire Date Thrive assessed: 05/31/24 I am a: Patient What is your living situation today?: I have a steady place to live Within the past 12 months, did the food you bought not last and you didn't have the money to get more?: Never true Within the past 12 months, did you worry whether your food would run out before you got money to buy more?: Never true Do you have trouble paying for medicines?: No Do you have trouble getting transportation to medical appointments?: No Do you have trouble paying your heating and electricity bill?: No Do you have trouble taking care of your child, family member or friend?: No Do you have trouble with day-to-day activities such as bathing, preparing meals, shopping, managing finances, etc.?: No Are you currently unemployed and looking for a job?: No Are you interested in more education?: No Please select the resources that you would like help with: None Currently or been in a relationship where the following occur: No concerns reported THRIVE Score: 0 AUDIT C Alcohol Use Questionnaire (AUDIT-C) 1. How often do you have a drink containing alcohol?: Monthly or less 2. How many drinks containing alcohol do you have on a typical day when you are drinking?: 1 or 2 3. How often do you have six or more drinks on one occasion?: Never Total Score: 1 DEREK-7 AMB Questionnaire DEREK-7 Date DEREK - 7 assessed: 10/01/23 Feeling nervous, anxious, or on edge: 0 = Not at all Not being able to stop or control worryin = Not at all Worrying too much about different things: 0 = Not at all Trouble relaxin = Not at all Being so restless that it is hard to sit still: 0 = Not at all Becoming easily annoyed or irritable: 0 = Not at all Feeling afraid as if something awful might happen: 0 = Not at all Total DEREK-7 score (0-4 normal; 5-9 mild; 10-14 moderate; 15-21 severe): 0 Source: Developed by Drs. Eliceo Ortiz, Adriana Butler, Nicolas Osorio and colleagues, with an educational gerard from [employer]. Review of Systems Const Denies chills, Denies fatigue, Denies fever(s), Denies headache(s) and Denies weakness ENT Denies dizziness and Denies headache(s) Card Denies dyspnea Resp Denies cough, Denies dyspnea, Denies wheezing and Denies other (shortness of breath) Musc Details: Back pain Shoulder pain Denies numbness and Denies tingling Neuro Denies dizziness, Denies headache(s), Denies numbness, Denies tingling and Denies weakness Psych Denies anxiety and Denies depression Endo Denies fatigue Aller/Immun Denies wheezing Physical exam (Primary Care) Vital Signs: Last Vital Signs Temp 97.7 F 06/07/24 08:26 Pulse 71 06/07/24 08:26 Resp 16 06/07/24 08:26 BP 139/76 06/07/24 08:26 Pulse Ox 97 06/07/24 08:26 Oxygen Delivery Method Room Air 06/07/24 08:26 BMI result Body Mass Index 31.9 Tobacco/Smoking Status: Tobacco use Status Tobacco use date assessed 06/07/24 06/07/24 08:27 Patient Tobacco Use Status Former Tobacco user 06/07/24 08:17 e-Cigarette/Vaping Use Never Used 06/07/24 08:17 PHQ-9: PHQ-9 Score PHQ-9: Total score 0 06/07/24 08:37 Thrive Assessment: Date of Thrive Assessment Date Thrive assessed 05/31/24 06/07/24 08:17 Currently or been in a relationship where the following occur: No concerns reported Const General: well developed; No acute distress Nutritional Appearance: well nourished Orientation/consciousness: patient oriented x3 [facility] Head: Yes normocephalic and Yes atraumatic Eyes General: appearance normal, both eyes and all related structures Pupils: Equal, round and reactive pupils present EOM: EOMs intact bilaterally Resp Effort & Inspection: normal respiratory effort Auscultation: clear to auscultation bilaterally Cardio Rate: regular rate Rhythm: regular rhythm Heart sounds: S1 normal heart sound present, S2 normal heart sound present, no gallops, no murmurs and no rubs Neuro General: patient oriented x3 and gait normal Cranial nerves: Yes Equal, round and reactive pupils present Psych Affect: normal affect Coding Level of Care Code Est Pt Level 4 (65636) Diagnoses Diabetes E11.9 Hypertension I10 Elevated liver enzymes R74.8 Hyperlipidemia E78.5 Coronary artery disease I25.10 Back pain M54.9 Shoulder pain M25.519 Tinnitus H93.19 Assessment & Plan Assessment & Plan (1) Diabetes: Code(s): E11.9 - Type 2 diabetes mellitus without complications Category: Medical Plan: A1c?has?climbed?further?to?8.7%. He?has?not?been?taking?Lantus.??Patient?had?lost?his?insurance?and?had?been?taki ng?Jardiance?either. Will?restart?Jardiance. Continue?glipizide?and?Lantus. Check?blood?sugars Close?follow-up;?will?return?in?1?month Patient?says?he?has?an?eye?exam?scheduled (2) Hypertension: Code(s): I10 - Essential (primary) hypertension Category: Medical Plan: Blood?pressure?is?a?little?elevated?today. Goal?is?less?than?130/80 He?has?close?follow- up?in?a?month?and?if?still?elevated?we?will?adjust?his?medication (3) Elevated liver enzymes: Comment: Liver enzymes nearly normal follows up with PCP Code(s): R74.8 - Abnormal levels of other serum enzymes Category: Medical Plan: Ongoing?mild?liver?enzyme?elevation Patient?had?an ultrasound?in?2022?which?showed?hepatic?steatosis?without ?significant?increase?in?liver?stiffness Advised?weight?loss, (4) Hyperlipidemia: Code(s): E78.5 - Hyperlipidemia, unspecified Category: Medical Plan: LDL?cholesterol?is?still?too?high.??Goal?is?less?than?70 Switched?atorvastatin?to?rosuvastatin W e?also?discussed?that?if?he?is?still?significantly?far?from?goal,?we?could?add?Z etia (5) Coronary artery disease: Code(s): I25.10 - Atherosclerotic heart disease of circle coronary artery without angina pectoris Category: Medical Plan: Discussed?wi th?patient?that?we?should?strive?to?get?blood?sugar,?blood?pressure?and?lipids?u nder?better?control. 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 Refer?to?[facility] [place]?speech?and?hearing?for?audiology?testing Orders: Orders PT Evaluation and Treatment Today M25.519 - Pain in unspecified shoulder, M54.9 - Dorsalgia, unspecified Referrals Audiology Referral H93.19 - Tinnitus, unspecified ear Medications: New rosuvastatin 40 mg PO DAILY 90 days 90 tabs 3RF empagliflozin (Jardiance) 25 mg PO QAM 90 days 90 tabs 3RF Refilled insulin glargine (Lantus Solostar U-100 Insulin) 10 units (0.1 mL) subcut QPM 30 days 3 mL 3RF E11.9 - Type 2 diabetes mellitus without complications glipizide ER Take 15 min before breafast and 15 min before lunch 5 mg PO BID 90 days 180 tabs 0RF losartan-hydrochlorothiazide 50-12.5 mg 1 tab PO DAILY 90 days 90 tabs 1RF Discontinued atorvastatin Discontinued Reason: Doctor's Order 80 mg PO DAILY 90 days 90 tabs 0RF
[2024-06-07 08:26] VITALS: BP 139/76; PULSE 71; RESP 16; TEMP 36.5; O2SAT 97; BMI 31.9
== END 2024-06-07 08:56 | disposition home or self-care (01) ==
PROVIDERS: PCP Family Medicine; Visit Provider Family Medicine
DX: E11.9 Type 2 diabetes mellitus without complications (principal); I10 Essential (primary) hypertension; R74.8 Abnormal levels of other serum enzymes; E78.5 Hyperlipidemia, unspecified; I25.10 Atherosclerotic heart disease of native coronary artery without angina pectoris; M54.9 Dorsalgia, unspecified; M25.519 Pain in unspecified shoulder; H93.19 Tinnitus, unspecified ear

== ENCOUNTER → 2024-06-07 08:13 | Outpatient (BNVA) | payer OTHER, SELFPAY | PROVIDERS: PCP Family Medicine; Visit Provider Family Medicine | DX: E11.9 Type 2 diabetes mellitus without complications (principal); I10 Essential (primary) hypertension; R74.8 Abnormal levels of other serum enzymes; E78.5 Hyperlipidemia, unspecified; I25.10 Atherosclerotic heart disease of native coronary artery without angina pectoris; M54.9 Dorsalgia, unspecified; H93.19 Tinnitus, unspecified ear | CPT/HCPCS: 83036; 96127; 99212 ==